=== PATIENT | female | born 1970 | race African-American/Black ===

== ENCOUNTER 2021-03-25 08:14 | Emergency (ER) | payer BC ==
[~2021-03-25] VITALS: Ht 172.7 cm; Wt 93.0 kg
[2021-03-25] MEDS ORDERED: KETOROLAC TROMETHAMINE 30 MG/ML VIAL IV STA (08:35)
[2021-03-25] MEDS ORDERED: SODIUM CHLORIDE 0.9% 1000ML 1,000 ML IV STA (08:35)
[2021-03-25] MEDS ORDERED: ONDANSETRON HCL INJ 2MG/ML 2ML 2 MG/ML VIAL IV STA (08:35)
[2021-03-25] MEDS ORDERED: SODIUM CHLORIDE 0.9% 1000ML 1,000 ML ONE (09:05)
[2021-03-25] MEDS ORDERED: KETOROLAC TROMETHAMINE 30 MG/ML VIAL ONE (09:05)
[2021-03-25] MEDS ORDERED: SODIUM CHLORIDE 0.9% 50ML 50 ML ONE (09:20)
[2021-03-25] MEDS ORDERED: IOPAMIDOL 370 MG/ML 200 ML INFUS..BTL INJ ONE (09:20)
[2021-03-25] MEDS ORDERED: PYRIDIUM100 MG PO (10:10)
[2021-03-25] MEDS ORDERED: CIPRO500 MG PO (10:10)
[2021-03-25] MEDS: DICYCLOMINE HCL 20 MG/2 ML VIAL IM ONE (10:27)
[2021-03-25] MEDS ORDERED: DICYCLOMINE HCL 10 MG CAP ONE (10:34)
[2021-03-25] MEDS ORDERED: DICYCLOMINE HCL 10 MG CAP PO ONE (10:45)
== END 2021-03-25 10:34 | disposition home or self-care (01) ==
LOC: FSED 08:23
DX: N39.0 Urinary tract infection, site not specified (principal); Z90.710 Acquired absence of both cervix and uterus
CPT/HCPCS: 74177; 80048; 80076; 81003; 82553; 84484; 85025; 96374; 99283; J1885; J7030; Q9967

== ENCOUNTER 2021-05-04 06:26 | Emergency (ER) | payer BC ==
[~2021-05-04] VITALS: Ht 172.7 cm; Wt 91.8 kg
[~2021-05-04 06:26] MED LIST: CIPRO500 MG PO; PYRIDIUM100 MG PO
[2021-05-04] MEDS ORDERED: AUGMENTIN 875-1 EACH PO (07:08)
== END 2021-05-04 07:12 | disposition home or self-care (01) ==
LOC: FSED 07:06
DX: H66.91 Otitis media, unspecified, right ear (principal)
CPT/HCPCS: 99282

== ENCOUNTER 2021-06-04 14:45 | Emergency (ER) | payer BC ==
[~2021-06-04] VITALS: Ht 172.7 cm; Wt 92.3 kg
[~2021-06-04 14:45] MED LIST changes: +AUGMENTIN 875-1 EACH PO
[2021-06-04] MEDS ORDERED: SODIUM CHLORIDE 0.9% 1000ML 1,000 ML IV STA (15:08)
[2021-06-04] MEDS ORDERED: MECLIZINE HCL 12.5 MG TAB PO STA ×2 (15:08→15:47)
[2021-06-04] MEDS ORDERED: SODIUM CHLORIDE 0.9% 1000ML 1,000 ML ONE (15:59)
== END 2021-06-04 17:45 | disposition other institution (70) ==
LOC: FSED 14:51
DX: R42 Dizziness and giddiness (principal); I49.3 Ventricular premature depolarization; H53.2 Diplopia; Z20.822 Contact with and (suspected) exposure to COVID-19
CPT/HCPCS: 70450; 71045; 80048; 81003; 82553; 84484; 85025; 99284; J7030; J8597; U0002; 93005

== ENCOUNTER → 2021-12-31 | Day surgery (SDC) | payer BC ==
[~2021-12-31] MED LIST changes: +LIDOCAINE HCL 2% LOCAL INJ 5 ML SDV VIAL INJ ONE; +LOSARTAN POTAS100 MG PO; +MIDAZOLAM HCL 2 MG/2 ML VIAL ONE; +PROPOFOL IV EMULSION 10 MG/ML 20 ML VIAL ONE
[2021-12-31 11:30] VITALS: BP 112/89
== END | disposition home or self-care (01) ==
LOC: OR 08:34
PROVIDERS: ATTEND Internal Medicine Gastroenterology
DX: Z12.11 Encounter for screening for malignant neoplasm of colon (principal); D12.2 Benign neoplasm of ascending colon; K57.30 Diverticulosis of large intestine without perforation or abscess without bleeding; K64.8 Other hemorrhoids; I10 Essential (primary) hypertension; R00.1 Bradycardia, unspecified; Z01.810 Encounter for preprocedural cardiovascular examination; Z79.899 Other long term (current) drug therapy; Z68.31 Body mass index [BMI] 31.0-31.9, adult
CPT/HCPCS: 45384; 93005; J2001; J2250; J2704; 45378

== ENCOUNTER 2022-11-16 11:41 | Emergency (ER) | payer BC ==
[~2022-11-16] VITALS: Ht 172.7 cm; Wt 91.3 kg
[~2022-11-16 11:41] MED LIST changes: -LIDOCAINE HCL 2% LOCAL INJ 5 ML SDV VIAL INJ ONE; -MIDAZOLAM HCL 2 MG/2 ML VIAL ONE; -PROPOFOL IV EMULSION 10 MG/ML 20 ML VIAL ONE
[2022-11-16] MEDS ORDERED: AMLODIPINE BESY10 MG PO (12:06)
[2022-11-16] MEDS ORDERED: TRAZODONE HCL50 MG PO (12:06)
[2022-11-16] MEDS ORDERED: FUROSEMIDE40 MG PO (12:06)
[2022-11-16] MEDS ORDERED: HYDROCHLOROTHIA25 MG PO (12:06)
[2022-11-16 13:39] VITALS: O2SAT 100
[2022-11-16] MEDS ORDERED: CEPHALEXIN500 MG PO (15:31)
== END 2022-11-16 15:39 | disposition home or self-care (01) ==
LOC: FSED 11:50
DX: N61.1 Abscess of the breast and nipple (principal)
CPT/HCPCS: 93971; 99283